=== PATIENT | female | born 1995 | race Caucasian/White ===

== ENCOUNTER 2016-09-29 13:38 | Emergency (ER) | payer SELFPAY ==
[2016-09-29 13:49] VITALS: O2SAT 97
[2016-09-29] MEDS ORDERED: NS 1,000 ML IV ONE (14:39)
[2016-09-29] MEDS ORDERED: ONDANSETRON 4 MG/2 ML VIAL IVP ONE (14:41)
--- NOTE | 2016-09-29 14:47 | UCPHY ---
H & P Patient Type: New Chief Complaint Nursing Narrative: fever, night sweats since last night along with cramps and "poking" intrauterine pain. +nausea. +dizzy. +WALLACE. IUD placed in June with painful, irregular "spotting" since then. Time Seen by Provider: 09/29/16 14:20 HPI/ROS: HPI CHIEF COMPLAINT: "I think my IUD is out of place" HISTORY OF PRESENT ILLNESS: This patient very pleasant 21-year-old female no significant medical or surgical history she has an IUD in since June, she presents to the urgent care stating that she thinks her IUD has moved, she states for the past 2-3 days she has as intermittent fever, chills no recorded temperature at home subjective. Also states she has had some light spotting. Denies being . Denies urinary symptoms. Patient tells me that she thinks her IUD has moved. She also endorses intermittent pelvic cramping. No significant vaginal discharge. Tells me at time she saw some white yellow discharge today. No urinary symptoms no back pain. No vomiting. Has had nausea. Past Medical History:Denies significant medical history Past Surgical History: denies significant surgical history Social History: Denies drugs alcohol tobacco products Family History: Noncontributory ROS REVIEW OF SYSTEMS: A comprehensive 10 point review of systems is otherwise negative aside from elements mentioned in the history of present illness. Exam Constitutional triage nursing summary reviewed, vital signs reviewed, awake/ alert. Eyes normal conjunctivae and sclera, EOMI, PERRLA. HENT normal inspection, atraumatic, moist mucus membranes, no epistaxis, neck supple/ no meningismus, no raccoon eyes. Respiratory clear to auscultation bilaterally, normal breath sounds, no respiratory distress, no wheezing. Cardiovascular rate normal, regular rhythm, no murmur, no edema, distal pulses normal. Gastrointestinal soft, non-tender, no rebound, no guarding, normal bowel sounds, no distension, no pulsatile mass. Genitourinary no CVA tenderness. Musculoskeletal no midline vertebral tenderness, full range of motion, no calf swelling, no tenderness of extremities, no meningismus, good pulses, neurovascularly intact. Skin pink, warm, & dry, no rash, skin atraumatic. Neurologic awake, alert and oriented x 3, AAOx3, moves all 4 extremities equally, motor intact, sensory intact, CN II-XII intact, normal cerebellar, normal vision, normal speech. Psychiatric normal mood/affect. Heme/Lymph/Immune no lymphadenopathy. Differential Diagnosis: includes but is not limited to in a particular order, pelvic infection, PID, cervicitis, IUD malposition, ectopic , urinary tract infection, Medical Decision Making: Plan for this patient is pelvic ultrasound lab work, urinalysis, , pelvic exam. Re-evaluation: Ultrasound of the pelvic The results of the study are unremarkable, IUD in good position, unremarkable pelvic ultrasound I discussed the results of this study with the radiologist Dr. Dang Pelvic Exam Perfomed: 1552: No significant abnormality seen on pelvic exam specifically no evidence of PID, no cervical motion tenderness, no mass, no adnexal mass, no pus, no edna discharge, no foul smell. No foreign body seen. Unremarkable pelvic exam submarine element coordinator was Angelica WU 1638: Re-evaluation at this time patient is resting comfortably no abdominal pain specifically no right lower quadrant pain. Patient resting comfortably. Appears well nontoxic. Blood work, urinalysis, pelvic exam reviewed. Pelvic exam shows no evidence of infection, wet prep negative, gonorrhea chlamydia pending. UA shows possible UTI however smoker dirty catch given amount of bacteria will treat. Sent for culture. Keflex given the urgent care. Ibuprofen for pain control. Follow up with obstetrics gyn. Return to the ER urgent care if any worsening symptoms she understands. Id good position. No evidence of PID. Source: Patient - Personal History LMP (Females 10-55): IUD In Place Current Tetanus Diphtheria and Acellular Pertussis (TDAP): Yes - Medical/Surgical History Hx Asthma: Yes Hx Chronic Respiratory Disease: No Hx Diabetes: No Hx Cardiac Disease: No Hx Renal Disease: No Hx Cirrhosis: No Hx Alcoholism: No Hx HIV/AIDS: No Hx Splenectomy or Spleen Trauma: No Other PMH: cold-induced asthma - Family History Significant Family History: No pertinent family hx - Social History Smoking Status: Never smoked Constitutional: Initial Vital Signs Temperature (C) 37.0 C 09/29/16 13:42 Heart Rate 58 L 09/29/16 13:42 Respiratory Rate 16 09/29/16 13:42 Blood Pressure 118/76 09/29/16 13:42 O2 Sat (%) 97 09/29/16 13:42 O2 Delivery Mode Room Air Allergies/Adverse Reactions: No Known Allergies Allergy (Unverified 09/29/16 13:49) Home Medications: Medication Instructions Recorded Cephalexin [Keflex] 500 mg PO Q6H #28 cap 09/29/16 Ibuprofen [Motrin (*)] 800 mg PO Q6-8PRN #10 tab 09/29/16 Medical Decision Making - Diagnostics Imaging: Imaging Impressions Pelvic/Renal Ultrasound 09/29/16 14:41 Impression: 1. Retroflexed uterus. 2. IUD in good position within the endometrial canal. 3. Normal-appearing ovaries. Findings discussed with Ally Mccarty MD at 15:38 hour, 09/29/2016. - Data Points Laboratory Results: Laboratory Results 09/29/16 14:39 09/29/16 14:39 09/29/16 09/29/16 09/29/16 15:50 15:19 15:19 WBC RBC Hgb Hct MCV MCH MCHC RDW Plt Count MPV Neut % (Auto) Lymph % (Auto) [place] % (Auto) Eos % (Auto) Baso % (Auto) Nucleat RBC Rel Count Absolute Neuts (auto) Absolute Lymphs (auto) Absolute Monos (auto) Absolute Eos (auto) Absolute Basos (auto) Absolute Nucleated RBC Immature Gran % Immature Gran # Sodium Potassium Chloride Carbon Dioxide Anion Gap BUN Creatinine Estimated GFR Glucose Calcium Total Bilirubin AST ALT Alkaline Phosphatase Total Protein Albumin Beta HCG, Qual Urine Color YELLOW Urine Appearance HAZY Urine pH 6.0 (5.0-7.5) Ur Specific [place] 1.020 (1.002-1.030) Urine Protein NEGATIVE (NEGATIVE) Urine Ketones NEGATIVE (NEGATIVE) Urine Blood 2+ H (NEGATIVE) Urine Nitrate NEGATIVE (NEGATIVE) Urine Bilirubin NEGATIVE (NEGATIVE) Urine Urobilinogen 0.2 EU EU (0.2-1.0) Ur Leukocyte Esterase TRACE H (NEGATIVE) Urine RBC 1-3 /hpf /hpf (0-3) Urine WBC 3-5 /hpf H /hpf (0-3) Ur Epithelial Cells 2+ /lpf H /lpf (NONE-1+) Urine Bacteria 3+ /hpf H /hpf (NONE SEEN) Urine Mucus 1+ /lpf /lpf (NONE-1+) Ur Culture Indicated? INDICATED H (NI) Urine Glucose NEGATIVE (NEGATIVE) Trichomonas (Wet Prep) 1+ WBC H N.gonorrhoeae RNA (TMA) Pending 09/29/16 09/29/16 09/29/16 14:49 14:39 14:39 WBC 8.71 10^3/uL 10^3/uL (3.80-9.50) RBC 5.06 10^6/uL 10^6/uL (4.18-5.33) Hgb 13.0 g/dL g/dL (12.6-16.3) Hct 40.0 % % (38.0-47.0) MCV 79.1 fL L fL (81.5-99.8) MCH 25.7 pg L pg (27.9-34.1) MCHC 32.5 g/dL g/dL (32.4-36.7) RDW 15.9 % H % (11.5-15.2) Plt Count 305 10^3/uL 10^3/uL (150-400) MPV 10.4 fL fL (8.7-11.7) Neut % (Auto) 59.9 % % (39.3-74.2) Lymph % (Auto) 32.3 % % (15.0-45.0) [place] % (Auto) 5.3 % % (4.5-13.0) Eos % (Auto) 2.0 % % (0.6-7.6) Baso % (Auto) 0.2 % L % (0.3-1.7) Nucleat RBC Rel Count 0.0 % % (0.0-0.2) Absolute Neuts (auto) 5.22 10^3/uL 10^3/uL (1.70-6.50) Absolute Lymphs (auto) 2.81 10^3/uL 10^3/uL (1.00-3.00) Absolute Monos (auto) 0.46 10^3/uL 10^3/uL (0.30-0.80) Absolute Eos (auto) 0.17 10^3/uL 10^3/uL (0.03-0.40) Absolute Basos (auto) 0.02 10^3/uL 10^3/uL (0.02-0.10) Absolute Nucleated RBC 0.00 10^3/uL 10^3/uL (0-0.01) Immature Gran % 0.3 % % (0.0-1.1) Immature Gran # 0.03 10^3/uL 10^3/uL (0.00-0.10) Sodium 143 mEq/L mEq/L (134-144) Potassium 4.0 mEq/L mEq/L (3.5-5.2) Chloride 103 mEq/L mEq/L (97-110) Carbon Dioxide 25 mEq/l mEq/l (22-31) Anion Gap 15 mEq/L mEq/L (8-16) BUN 9 mg/dL mg/dL (7-23) Creatinine 0.7 mg/dL mg/dL (0.6-1.0) Estimated GFR > 60 Glucose 76 mg/dL mg/dL (70-100) Calcium 9.2 mg/dL mg/dL (8.5-10.4) Total Bilirubin 0.6 mg/dL mg/dL (0.1-1.4) AST 14 IU/L IU/L (14-46) ALT 25 IU/L IU/L (9-52) Alkaline Phosphatase 104 IU/L IU/L (38-126) Total Protein 7.4 g/dL g/dL (6.3-8.2) Albumin 4.4 g/dL g/dL (3.5-5.0) Beta HCG, Qual NEGATIVE Urine Color Urine Appearance Urine pH Ur Specific [place] Urine Protein Urine Ketones Urine Blood Urine Nitrate Urine Bilirubin Urine Urobilinogen Ur Leukocyte Esterase Urine RBC Urine WBC Ur Epithelial Cells Urine Bacteria Urine Mucus Ur Culture Indicated? Urine Glucose Trichomonas (Wet Prep) N.gonorrhoeae RNA (TMA) Medications Given: Discontinued Medications Sodium Chloride (Ns) 1,000 mls @ 0 mls/hr IV ONCE ONE PRN Reason: Wide Open Stop: 09/29/16 14:40 Last Admin: 09/29/16 15:42 Dose: 1,000 mls Ondansetron HCl (Zofran) 4 mg IVP EDNOW ONE Stop: 09/29/16 14:42 Last Admin: 09/29/16 15:52 Dose: 4 mg Departure - Departure Disposition: Home, Routine, Self-Care Clinical Impression: Pelvic pain UTI (urinary tract infection) Qualifiers: Urinary tract infection type: acute cystitis Hematuria presence: with hematuria Qualified Code(s): N30.01 - Acute cystitis with hematuria Condition: Good Instructions: Urinary Tract Infection in Women (ED), Pelvic Pain in Women (ED) Additional Instructions: 1. Drink lots of fluids. Stay well-hydrated. 2. return to the urgent care or emergency room if you have worsening symptoms questions or concerns. 3. take antibiotic as prescribed. 4. ibuprofen for pain control. 5.Follow up with OBGYN. Call for an appointment. Referrals: NONE *PRIMARY CARE P,. [Primary Care Provider] - As per Instructions Nancy Morris DO [Doctor of Osteopathy] - As per Instructions Prescriptions: Cephalexin [Keflex] 500 mg PO Q6H #28 cap Ibuprofen [Motrin (*)] 800 mg PO Q6-8PRN #10 tab - PQRS PQRS Measurement: n/a
[2016-09-29 14:57] LABS: % IMMATURE GRANULYOCYTES 0.3 % (0.0-1.1); ABSOLUTE IMMATURE GRANULOCYTES 0.03 10^3/uL (0.00-0.10); ADD DIFF? NO; ADD MORPH? NO; ADD SCAN? NO; ATYPICAL LYMPHOCYTE FLAG 0 (0-99); FRAGMENT RBC FLAG 0 (0-99); LEFT SHIFT FLG 0 (0-99); LIPEMIA HEMOLYSIS FLAG 80 (0-99); MEAN CELL HEMOGLOBIN 25.7 pg (27.9-34.1); MEAN CELL HEMOGLOBIN CONCENTR. 32.5 g/dL (32.4-36.7); MEAN CELL VOLUME 79.1 fL (81.5-99.8); MEAN PLATELET VOLUME 10.4 fL (8.7-11.7); PLATELET CLUMPS FLAG 0 (0-99); PLATELET COUNT 305 10^3/uL (150-400); RED BLOOD CELL COUNT 5.06 10^6/uL (4.18-5.33); RED CELL DISTRIBUTION WIDTH 15.9 % (11.5-15.2)
[2016-09-29 15:10] LABS: ALANINE AMINOTRANSFERASE 25 IU/L (9-52); ALBUMIN 4.4 g/dL (3.5-5.0); ALKALINE PHOSPHATASE 104 IU/L (38-126); ANION GAP 15 mEq/L (8-16); ASPARTATE AMINOTRANSFERASE 14 IU/L (14-46); BILIRUBIN,TOTAL 0.6 mg/dL (0.1-1.4); CALCIUM 9.2 mg/dL (8.5-10.4); CARBON DIOXIDE 25 mEq/l (22-31); CHLORIDE 103 mEq/L (97-110); CREATININE 0.7 mg/dL (0.6-1.0); GLOMERULAR FILTRATION RATE > 60; GLUCOSE 76 mg/dL (70-100); SODIUM 143 mEq/L (134-144); TOTAL PROTEIN 7.4 g/dL (6.3-8.2)
[2016-09-29 16:16] LABS: COLOR YELLOW; LEUKOCYTE ESTERASE,URINE TRACE (NEGATIVE); NITRITE,URINE NEGATIVE (NEGATIVE)
[2016-09-29 16:34] LABS: BACTERIA 3+ /hpf (NONE SEEN); MUCUS 1+ /lpf (NONE-1+)
[2016-09-29] MEDS ORDERED: CEPHALEXIN 500 MG CAP PO ONE (16:36)
[2016-09-29 17:05] VITALS: BP 124/72; PULSE 55; RESP 20; TEMP 98.1
[2016-09-30 12:04] LABS: CHLAMYDIA AMPLIFICATION GENPRB POSITIVE (NEGATIVE)
== END 2016-09-29 16:59 | disposition home or self-care (01) ==
LOC: CED 13:38
DX: N30.01 Acute cystitis with hematuria (principal)
CPT/HCPCS: 76856-PO; 80053-PO; 81003-PO; 81015-PO; 84703-PO; 85025-PO; 87210-PO; 96361-PO; 96374-PO; 99205-PO; G0463-PO; J2405